=== PATIENT | female | born 1985 | race Caucasian/White ===

== ENCOUNTER 2017-02-03 05:29 | Day surgery (SDC) | payer SELFPAY ==
[~2017-02-03] VITALS: Ht 170.2 cm; Wt 76.4 kg
[2017-02-03] VITALS (7 sets, daily range): BP systolic 119–139; BP diastolic 70–86; PULSE 64–102; TEMP 97.9–98.2
[2017-02-03] MEDS ORDERED: FLOMAX 0.40.4 MG/CAP (06:36)
[2017-02-03] MEDS ORDERED: STOOL SOFTENER100 M2 PO (06:36)
[2017-02-03] MEDS ORDERED: PERCOCET 325 MG1 TA2 PO (06:37)
[2017-02-03] MEDS ORDERED: NORCO 325 MG-51 TAB PO ×2 (06:38→09:24)
[2017-02-03] MEDS ORDERED: ZOFRAN 4MG T4 MG/TAB PO (06:38)
[2017-02-03] MEDS ORDERED: SENOKOT8.6 MG PO (09:25)
[2017-02-03] MEDS ORDERED: PYRIDIUM 100MG100 MG PO (09:26)
== END 2017-02-03 10:50 | disposition home or self-care (01) ==
LOC: SDCO 05:29
DX: N13.2 Hydronephrosis with renal and ureteral calculous obstruction (principal); Z80.3 Family history of malignant neoplasm of breast
CPT/HCPCS: C1769; C2617; J0690; J1100; J2175; J2405; J2550; J2704; J3010; J7120; Q9967